=== PATIENT | female | born 1980 | race African-American/Black ===

== ENCOUNTER 2018-12-20 12:45 | Outpatient (CLI) | payer BC, OTHER ==
[2018-12-20 13:47] LABS: BASOPHILS # (AUTO) 0.04 x10^3/uL (0-0.1); BASOPHILS % (AUTO) 1 % (0-1); EOSINOPHILS # (AUTO) 0.27 x10^3/uL (0-0.4); EOSINOPHILS % (AUTO) 4 % (1-7); LYMPHOCYTES # (AUTO) 1.48 x10^3/uL (1-3.4); LYMPHOCYTES % (AUTO) 23 % (22-44); MD NO; MEAN CORPUSCULAR HEMOGLOBIN 31.3 pg (27.0-34.8); MEAN CORPUSCULAR HGB CONC 33.7 g/dL (32.4-35.8); MEAN CORPUSCULAR VOLUME 92.8 fL (80-100); MEAN PLATELET VOLUME 7.9 fL (7.4-10.4); MONOCYTES % (AUTO) 5 % (2-9); NEUTROPHILS # (AUTO) 4.23 x10^3/uL (1.8-6.8); NEUTROPHILS % (AUTO) 67 % (42-75); PLATELET COUNT 323 x10^3/uL (130-400); RED BLOOD COUNT 4.89 x10^6/uL (3.82-5.3)
[2018-12-20 13:58] LABS: ANION GAP 4 mmol/L (5-15); CALCIUM 8.6 mg/dL (8.5-10.1); CHLORIDE 107 mmol/L (98-107)
[2018-12-20 14:03] LABS: ALANINE AMINOTRANSFERASE 14 U/L (12-78); ALKALINE PHOSPHATASE 70 U/L (45-117); BILIRUBIN,TOTAL 0.6 mg/dL (0.2-1.0); CREATININE 0.94 mg/dL (0.55-1.02); TOTAL PROTEIN 7.9 g/dL (6.4-8.2)
[2018-12-20 14:40] LABS: MICROSCOPIC AUTO
[2018-12-20 14:49] LABS: CULTURE INDICATED? NO
[2018-12-20] MEDS ORDERED: DIAZ5TAB PO (15:14)
[2018-12-20 15:40] LABS: INTERNATIONAL NORMALIZED RATIO 0.99 (0.93-1.1); PROTHROMBIN TIME 10.4 Seconds (9.6-11.5)
== END 2018-12-20 23:59 | disposition home or self-care (01) ==
LOC: STAR 12:45
PROVIDERS: ATTEND Neurological Surgery
DX: Z01.818 Encounter for other preprocedural examination (principal); Z83.3 Family history of diabetes mellitus; M48.02 Spinal stenosis, cervical region; M50.30 Other cervical disc degeneration, unspecified cervical region
CPT/HCPCS: 36415; 71046; 80053; 81001; 85025; 85610; 85730; 93005

== ENCOUNTER 2019-01-02 05:31 | Inpatient (IN) | payer BC ==
[~2019-01-02] VITALS: Ht 167.6 cm; Wt 69.0 kg
[~2019-01-02 05:31] MED LIST: DIAZ5TAB PO
[2019-01-02] MEDS ORDERED: EPINEPHRINE 1 MG/ML, 1ML ONE (06:52)
[2019-01-02] MEDS ORDERED: BUPIVACAINE/PF 0.5% ONE (06:52)
[2019-01-02] MEDS ORDERED: THROMBIN (RECOMBINANT) 5,000 UNIT VIAL TP ONE (06:52)
[2019-01-02] MEDS ORDERED: BACITRACIN 50,000 UNIT ONE (06:53)
[2019-01-02] MEDS ORDERED: LACTATED RINGERS 1,000 ML IV SCH (06:57)
[2019-01-02] MEDS ORDERED: LIDOCAINE-MPF 1%, 2ML INFIL ONE (07:00)
[2019-01-02 07:04] VITALS: BP 127/85
[2019-01-02] MEDS ORDERED: MIDAZOLAM 1 MG/ML, 2ML ONE (07:15)
[2019-01-02] MEDS ORDERED: FENTANYL PF 250 MCG/5ML ONE (07:15)
[2019-01-02] MEDS ORDERED: ACETAMINOPHEN 500 MG TABLET ONE ×2 (07:22→07:50)
[2019-01-02] MEDS ORDERED: GABAPENTIN 300 MG CAPSULE ONE ×2 (07:23→07:50)
[2019-01-02] MEDS ORDERED: SCOPOLAMINE PATCH, 1.5MG PATCH.TD72 TD ONE ×2 (07:29)
[2019-01-02] MEDS ORDERED: PROPOFOL 100 ML ONE (08:14)
[2019-01-02] MEDS ORDERED: MEPERIDINE/PF 25MG/0.5ML IVPush PRN (08:30)
[2019-01-02] MEDS ORDERED: DIAZEPAM 5 MG/ML, 2ML IVPush PRN (08:30)
[2019-01-02] MEDS ORDERED: PROMETHAZINE 25 MG/ML, 1ML IV PRN (08:30)
[2019-01-02] MEDS ORDERED: ALBUTEROL SULFATE 2.5 MG/3 ML NPPB PRN (08:30)
[2019-01-02] MEDS ORDERED: HYDROmorphone 2 MG/ML, 1ML IVPush PRN (08:30)
[2019-01-02] MEDS ORDERED: OXYcodone 5 MG/5 ML ORAL.SOL UDC PO PRN (08:30)
[2019-01-02] MEDS ORDERED: LABETALOL 5MG/ML, 20ML IV PRN (08:30)
[2019-01-02] MEDS ORDERED: hydrALAzine 20 MG/ML, 1ML IV PRN (08:30)
[2019-01-02] MEDS ORDERED: PROPOFOL 50 ML ONE (09:13)
[2019-01-02] MEDS ORDERED: PROPOFOL 10 MG/ML, 20ML ONE (10:09)
[2019-01-02] MEDS ORDERED: ROCURONIUM 10MG/ML,5ML ONE (10:09)
[2019-01-02] MEDS ORDERED: GLYCOPYRROLATE 0.2MG/1ML, 5ML ONE (10:09)
[2019-01-02] MEDS ORDERED: DEXAMETHASONE 4 MG/ML, 1ML ONE (10:09)
[2019-01-02] MEDS ORDERED: ONDANSETRON 2MG/ML, 2ML ONE (10:09)
[2019-01-02] MEDS ORDERED: NEOSTIGMINE 1 MG/ML, 10ML ONE (10:09)
[2019-01-02] MEDS ORDERED: SUCCINYLCHOLINE 20 MG/ML, 10ML ONE (10:09)
[2019-01-02] MEDS ORDERED: CEFAZOLIN 1,000 MG ONE (10:09)
[2019-01-02] MEDS ORDERED: FENTANYL PF 100 MCG/2ML ONE (10:47)
[2019-01-02] MEDS ORDERED: OXYcodone 5 MG/5 ML ORAL.SOL UDC ONE (10:47)
[2019-01-02] MEDS: FENTANYL PF 100 MCG/2ML IV PRN ×2 (10:48→11:07)
[2019-01-02] MEDS ORDERED: ONDANSETRON 2MG/ML, 2ML IVPush PRN (11:00)
[2019-01-02] MEDS ORDERED: HYDROmorphone 1 MG/ML, 1ML INJ IVPush PRN (11:00)
[2019-01-02] MEDS ORDERED: MAGNESIUM HYDROXIDE 8%, 30ML UDC PO PRN (11:00)
[2019-01-02] MEDS ORDERED: BISACODYL 10 MG SUPP PR PRN (11:00)
[2019-01-02] MEDS ORDERED: HYDROcodone/APAP 10/325 MG TABLET PO PRN (11:00)
[2019-01-02] MEDS ORDERED: PHARMACY MAY ADJ FOR RENAL FX MC PRN (11:00)
[2019-01-02] MEDS ORDERED: DIAZEPAM 5 MG TABLET PO PRN (11:00)
[2019-01-02] MEDS ORDERED: DIPHENHYDRAMINE 50 MG/ML, 1ML IVPush PRN (11:00)
[2019-01-02] MEDS ORDERED: METHOCARBAMOL 1,000 MG in DEXTROSE 5% 100 ML IV ONE (11:00)
[2019-01-02] MEDS ORDERED: PROMETHAZINE 25 MG/ML, 1ML IM PRN (11:00)
[2019-01-02] MEDS: NS + 20MEQ KCL 1,000 ML IV SCH (12:27)
[2019-01-02 12:40] VITALS: BP 107/72
[2019-01-02] MEDS ORDERED: HYDROmorphone 1 MG/ML, 1ML VIAL ONE (12:44)
[2019-01-02] MEDS: HYDROmorphone 1 MG/ML, 1ML VIAL IVPush PRN ×2 (12:57→17:03)
[2019-01-02] MEDS ORDERED: HYDROmorphone 1 MG/ML, 1ML VIAL IVPush PRN (13:00)
[2019-01-02] MEDS: OXYcodone/APAP 5/325MG TABLET PO PRN ×2 (16:05→20:10)
[2019-01-02] MEDS: CEFAZOLIN PMX 1GM/50ML 50 ML IVPB SCH (16:21)
[2019-01-02 18:43] VITALS: BP 118/73
[2019-01-02] MEDS: SODIUM CHLORIDE FLUSH 10ML SYR IVF SCH (21:00)
[2019-01-02 23:16] VITALS: BP 97/58
[2019-01-03] MEDS: NS + 20MEQ KCL 1,000 ML IV SCH (00:03)
[2019-01-03] MEDS: CEFAZOLIN PMX 1GM/50ML 50 ML IVPB SCH (00:03)
[2019-01-03] MEDS: OXYcodone/APAP 5/325MG TABLET PO PRN ×3 (00:13→09:06)
[2019-01-03 03:01] VITALS: BP 103/63
[2019-01-03 07:15] VITALS: BP 99/63
[2019-01-03] MEDS ORDERED: SENNA/DOCUSATE TABLET PO SCH (09:00)
[2019-01-03] MEDS ORDERED: OXYC-302 PO (09:01)
[2019-01-03] MEDS ORDERED: TIZA2CAP2 PO (09:02)
[2019-01-03] MEDS: SODIUM CHLORIDE FLUSH 10ML SYR IVF SCH (09:07)
[2019-01-04] MEDS ORDERED: METHOCARBAMOL 750 MG TABLET PO SCH (19:00)
== END 2019-01-03 10:40 | disposition home or self-care (01) | DRG 518 ==
LOC: OUT 05:31 → 4NE 11:46 → OUT 22:24 → DCLOUNGE 01-03 10:35
PROVIDERS: ADMIT Neurological Surgery; ATTEND Neurological Surgery
PROC: 0RR30JZ Replacement of Cervical Vertebral Disc with Synthetic Substitute, Open Approach (ICD-10-PCS; 2019-01-02)
PROC: 4A11X4G Monitoring of Peripheral Nervous Electrical Activity, Intraoperative, External Approach (ICD-10-PCS; 2019-01-02)
PROC: 0RB30ZZ Excision of Cervical Vertebral Disc, Open Approach (ICD-10-PCS; principal; 2019-01-02 07:30)
DX: M48.02 Spinal stenosis, cervical region (principal); M50.122 Cervical disc disorder at C5-C6 level with radiculopathy; F41.9 Anxiety disorder, unspecified; F32.9 Major depressive disorder, single episode, unspecified; Z82.61 Family history of arthritis; Z83.3 Family history of diabetes mellitus
CPT/HCPCS: 72040; J3490; S0020; 81025; 93005; 95938; 95941; C1776; G0378; J0171; J0690; J1100; J2250; J2405; J2704; J2710; J3010; J3480; J0330; J1170; J2800; J7120